=== PATIENT | female | born 1935 | race Two or more races ===

== ENCOUNTER 2017-07-19 09:09 | Outpatient (CLI) | payer OTHER | END 2017-07-19 09:19 | disposition home or self-care (01) | LOC: RAD 501 09:09 | DX: M25.572 Pain in left ankle and joints of left foot (principal); M25.561 Pain in right knee; M25.562 Pain in left knee ==

== ENCOUNTER 2017-08-17 13:18 | Outpatient (CLI) | payer OTHER | END 2017-08-17 14:00 | disposition home or self-care (01) | LOC: NUCLEAR 13:18 | DX: M81.0 Age-related osteoporosis without current pathological fracture (principal); E21.3 Hyperparathyroidism, unspecified; E55.9 Vitamin D deficiency, unspecified | CPT/HCPCS: 78072; A9500 ==